=== PATIENT | male | born 1950 | race Caucasian/White ===

== ENCOUNTER → 2017-09-01 | Outpatient (CLI) | payer BC ==
[~2017-09-01] MED LIST: ASPI-1441 PO; CEPH500T7 PO; MELO-150 PO; OMEP-153 PO; ONDA4TAB PO
[2017-09-01 08:26] LABS: PLATELET COUNT, AUTOMATED 195 K/uL (150-450)
[2017-09-01 09:22] LABS: LDL CHOLESTEROL 85 mg/dl
== END ==
LOC: LAB 07:59
PROVIDERS: ATTEND Internal Medicine
DX: Z12.5 Encounter for screening for malignant neoplasm of prostate (principal); R73.9 Hyperglycemia, unspecified; R68.2 Dry mouth, unspecified; R79.89 Other specified abnormal findings of blood chemistry
CPT/HCPCS: 36415; 81001; 82040; 82247; 82310; 82374; 82435; 82465; 82565; 82947; 83718; 83735; 84075; 84100; 84132; 84153; 84155; 84295; 84443; 84450; 84460; 84478; 84520; 85025; 86038; 86235

== ENCOUNTER → 2017-12-12 | Outpatient (CLI) | payer BC ==
[~2017-12-12] MED LIST changes: +PILO5TAB12 PO
[2017-12-12 09:13] LABS: PLATELET COUNT, AUTOMATED 201 K/uL (150-450)
== END ==
LOC: LAB 08:50
PROVIDERS: ATTEND Internal Medicine
DX: R31.9 Hematuria, unspecified (principal); R79.89 Other specified abnormal findings of blood chemistry; R73.9 Hyperglycemia, unspecified
CPT/HCPCS: 36415; 81001; 82040; 82247; 82310; 82374; 82435; 82565; 82947; 84075; 84132; 84155; 84295; 84450; 84460; 84520; 85025